=== PATIENT | male | born 1945 | race Caucasian/White ===

== ENCOUNTER 2016-05-23 08:07 | Day surgery (SDC) | payer MEDICARE, BC, OTHER ==
[~2016-05-23 08:07] MED LIST: RINGERS SOLUTION,LACTATED 1,000 ML IV PRN
[2016-05-23] MEDS ORDERED: RINGERS SOLUTION,LACTATED 1,000 ML IV ONE (09:15)
[2016-05-23] MEDS ORDERED: RINGERS SOLUTION,LACTATED 1,000 ML IV PRN (10:21)
[2016-05-23 11:15] VITALS: BP 125/72
--- NOTE | 2016-05-23 18:19 | OR ---
Operative Report - Dictated Report Narrative: OPERATIVE REPORT DATE OF OPERATION: 05/23/2016 PREOPERATIVE DIAGNOSIS: History of colon polyps POSTOPERATIVE DIAGNOSIS: Diverticulosis. 0.5 cm polyp in the cecum, 3 mm polyp at 100 cm, 4 mm polyps at 35 and 70 cm, 0.7 cm polyp at 20 cm (pathology pending) OPERATION: Colonoscopy with snare polypectomy at 20 cm and in the cecum. Hot biopsy forceps polypectomies at 35 cm, 70 cm, and 100 cm SURGEON: Josef Hammer MD ANESTHESIA: ADIEL Schultz CRNA INDICATIONS FOR PROCEDURE: The patient is a 70-year-old male referred by the [place]. He has had tubular adenomas removed in 2002, 2004, and 2008. His mother had colon cancer at age 70. The patient is currently asymptomatic FINDINGS: Sigmoid diverticulosis. 0.5 cm polyp in the cecum, 3 mm polyp at 100 cm, 4 mm polyps at 35 and 70 cm, 0.7 cm polyp at 20 cm (pathology pending) NARRATIVE OF PROCEDURE: The patient was identified in the holding area, and prior to the administration of anesthetic, a multidisciplinary timeout was observed. With the patient in the left lateral position and after the administration of intravenous sedation, the perineum was inspected. There was no evidence of pilonidal disease or skin breakdown. The external appearance of the anus was normal. Sphincter tone was good. The flexible fiberoptic colonoscope was inserted into the rectum which was insufflated with air. The rectal mucosa and submucosal vascular pattern appeared normal, the prep was seen to be complete. The scope was advanced through the sigmoid colon, which contained numerous non-impacted noninflamed diverticular openings. The scope was advanced up the descending colon, and around the splenic flexure where the triangular haustral architecture of the transverse colon was seen. The scope was advanced across the transverse colon, around the hepatic flexure to the cecum, where the confluence of tenia and the ileocecal valve were identified. The mucosa at this level appeared normal. On a proximal cecal fold a 0.5 cm polyp was encountered. This was biopsied and then removed with cautery snare. The polyp was retrieved through the suction and submitted to pathology. The base was additionally treated with cautery and appeared complete and hemostatic. The scope was then slowly withdrawn in a circular fashion so that all aspects of colonic mucosa were inspected. The colon was normal in course and caliber. The haustral architecture appeared well preserved throughout with no evidence of external compression. The mucosa and submucosal vascular pattern appeared normal, specifically there was no gross evidence to suggest colitis or inflammatory bowel disease and no AV malformations were seen. The diverticulosis was moderate in degree and confined primarily to the sigmoid colon. A 3 mm polyp was encountered at 100 cm this was simply destroyed in place with electrocautery. 4 mm polyps were encountered at 70 cm and 35 cm. These were removed with hot biopsy forceps. The polypectomy sites appeared complete and hemostatic. A 0.7 cm polyp was encountered at 20 cm. This was biopsied and then removed with cautery snare. The base was additionally treated with cautery and appeared complete and hemostatic. The polyp was retrieved and submitted to pathology. The scope was gradually withdrawn to the level of the rectum. As much insufflated air as possible was removed. The scope was withdrawn from the patient and the procedure terminated. The patient tolerated the anesthetic and procedure well without complication and was transferred back to the ambulatory surgery area awake and in stable condition. The patient remained stable throughout a period of postoperative observation. He denied abdominal discomfort, was able to tolerate by mouth intake, and was up without assistance. I shared the operative findings with the patient and he was given copies of the photographs which appear in the medical record. He was discharged home with instructions not to engage in hazardous activity today, but may resume normal activity tomorrow, and advance diet as tolerated. He is to continue those medications as listed in the history and physical exam. I made arrangements to contact him with the biopsy reports and will make additional recommendations for treatment and follow-up based upon those results. Reviewed and electronically signed
== END 2016-05-23 08:08 | disposition home or self-care (01) ==
LOC: AMB 08:07
PROVIDERS: ATTEND Surgery
PROC: 0DBE8ZX Excision of Large Intestine, Via Natural or Artificial Opening Endoscopic, Diagnostic (ICD-10-PCS; 2016-05-23)
PROC: 0DBE8ZX Excision of Large Intestine, Via Natural or Artificial Opening Endoscopic, Diagnostic (ICD-10-PCS; 2016-05-23)
PROC: 0DBH8ZX Excision of Cecum, Via Natural or Artificial Opening Endoscopic, Diagnostic (ICD-10-PCS; principal; 2016-05-23 10:00)
DX: Z12.11 Encounter for screening for malignant neoplasm of colon (principal); D12.0 Benign neoplasm of cecum; K63.5 Polyp of colon; I10 Essential (primary) hypertension; E78.5 Hyperlipidemia, unspecified; Z87.891 Personal history of nicotine dependence; Z68.32 Body mass index [BMI] 32.0-32.9, adult; Z80.0 Family history of malignant neoplasm of digestive organs

== ENCOUNTER 2016-07-21 10:27 | Emergency (ER) | payer MEDICARE, BC, OTHER ==
[2016-07-21 10:42] VITALS: BP 141/73
--- NOTE | 2016-07-21 10:48 | ERNOTE ---
Integumentary HPI - Narrative Date of Service: 07/21/16 - General Presenting Symptoms: insect bite Time Seen by Provider: 07/21/16 10:46 Source: patient, RN notes reviewed Exam Limitations: no limitations - Immun/Allergies/Home Medications Immunizations: IMMUNIZATION HX Immunizations Up to Date Yes History of Influenza Vaccine Yes Hx Pneumococcal Vaccination Yes Allergies/Adverse Reactions: Allergies Allergy/AdvReac Type Severity Reaction Status Date / Time Penicillins Allergy Hives Verified 07/21/16 10:43 Home Medications: HOME MEDICATIONS Allopurinol 300 mg PO DAILY 01/23/13 [Last Taken 05/22/16] Aspirin [Aspirin Enteric Coated] 81 mg PO DAILY 01/23/13 [Last Taken 05/22/16] Finasteride 5 mg PO DAILY 01/23/13 [Last Taken 05/22/16] Hydrochlorothiazide 12.5 mg PO DAILY 01/23/13 [Last Taken 05/22/16] Metoprolol Tartrate [Lopressor] 100 mg PO BID 01/23/13 [Last Taken 05/23/16 04: 45] Multivit-Minerals/FA/Lycopene [Men's Daily Formula Capsule] 1 each PO DAILY 06/02 [Last Taken 05/22/16] Terazosin HCl 10 mg PO HS 01/23/13 [Last Taken 05/22/16] metFORMIN HCL [Metformin HCl] 500 mg PO BID 01/23/13 [Last Taken 05/22/16] Atorvastatin Calcium 40 mg PO DAILY 04/26/15 [Last Taken 05/22/16] Ibuprofen [Motrin] 600 mg PO Q8H PRN 04/28/16 [Last Taken 05/22/16] Nystatin 15 gm TP BID 04/28/16 [Last Taken 05/22/16] Clindamycin HCl [Cleocin HCl] 300 mg PO QID #28 capsule 07/21/16 [Last Taken Unknown] glipiZIDE [Glipizide] 5 mg PO DAILY 07/21/16 [Last Taken Unknown] - History of Present Illness Narrative: Nick is a 70-year-old male who presents to the emergency Department by private vehicle for a possible insect bite to the left middle finger. He noticed a lesion on the finger very early this morning. It has continued to get larger and has become somewhat sore. He has also noticed increasing redness to the dorsum of his hand and some mild edema in his hand. He has a 37.7 temperature on arrival, but he denies any chills or malaise. He has not taken anything for pain. He reports having a tetanus vaccination recently at the [place]. Date (Duration): 07/21/16 Time (Timing): 03:00 Exposure: Reports: insect bite/spider - suspected - not actually seen Associated Symptoms: Reports: blisters, swelling/mass/lumps, edema. Denies: hives, petechiae, malaise, paresthesia, numbness Prior Treatment: Denies: recently seen, currently on antibiotics Review of Systems - Review of Systems Constitutional: Absent: chills, fatigue, malaise EYE: Present: no symptoms reported ENT: Present: no symptoms reported Respiratory: Absent: shortness of breath, cough, wheezing, stridor Cardiology: Absent: chest pain, palpitations Gastrointestinal/Abdominal: Absent: nausea, abdominal pain Genitourinary: Present: no symptoms reported Musculoskeletal: Absent: joint pain, joint swelling Skin: Present: lesions, change in color. Absent: rash Neurological: Absent: headache, dizziness/light-headedness, weakness, numbness, tingling Endocrine: Present: no symptoms reported Hematologic/Lymphatic: Absent: easy bruising, easy bleeding Psych: Present: no symptoms reported - Patient's Past Medical History Patient History - Medical: Arthritis, Diabetes Type 2, Other - BPH Patient History - Cardiac/Respiratory: Hypertension, Hyperlipidemia Patient History - Cancer: No Hx of Cancer Patient History - Surgical Procedures: Colonoscopy, Total Knee Replacement, T & A, Urology - Prostate biopsy Patient History - Other: None - Family History Father Family History - Medical: , Dementia Family History - Cardiac/Respiratory: No pertinent hx Family History - Cancer: No pertinent family hx Mother Family History - Medical: Anxiety Family History - Cardiac/Respiratory: No pertinent hx Family History - Cancer: Colon, Lung - Social History Living Situations: spouse Abuse History: No History of abuse Psych History: No pertinent hx Smoking Status: Former smoker Alcohol Use: occasionally Drug Use: none - Immunizations Immunizations Up to Date: Yes Hx Pneumococcal Vaccination: Yes History of Influenza Vaccine: Yes Physical Exam - Physical Exam General Appearance: Present: wd/wn, alert, no apparent distress Neck: Present: normal inspection, nontender, supple, full range of motion Respiratory: Present: no respiratory distress, normal breath sounds, no accessory muscle use, lungs clear Cardiovascular/Chest: Present: regular rate, rhythm, no murmur, normal peripheral pulses Extremity Exam: Present: normal range of motion, other - Erythema - extending from wound on proximal dorsal left middle finger to distal half of dorsal hand. Absent: joint redness, joint swelling Neurological Exam: Present: alert, oriented, normal mood/affect, no motor/ sensory deficits Skin Exam: Present: normal color, warm/dry, other - Hemorrhagic blister to left proximal dorsal middle finger with surrounding erythema, mildly tender to palpation ED Progress - Vital Signs Patient's Vital Signs:: I have reviewed the patient's vital signs. Vital Signs: Vital Signs 07/21/16 10:37 Temperature 37.7 C H Pulse Rate 80 Respiratory 16 Rate Blood Pressure 141/73 O2 Sat by Pulse 95 Oximetry - Progress/Reassessment Chief Complaint: Insect Bite Progress:: Unchanged Departure Clinical Impression: Brown recluse spider bite Qualifiers: Encounter type: initial encounter Injury intent: undetermined intent Qualified Code(s): T63.334A - Toxic effect of venom of brown recluse spider, undetermined , initial encounter - Departure Disposition: Home self-care Condition: Good Instructions: Spider Bite Additional Instructions: Cold compresses several times a day Tylenol for pain if needed Return for vomiting, high fever, or other worsening symptoms Prescriptions: Clindamycin HCl [Cleocin HCl] 300 mg PO QID #28 capsule
--- OUTSIDE RECORDS SUMMARY | 2016-07-21 11:07 | XMS REPORT | Continuity of Care Document ---
:1945 Author Organization [facility] ([facility]) Address [place] [address] Phone [phone] Care Team Providers Name Role Phone Unavailable Primary Care Provider Unavailable Source Comments This disclosure is being made pursuant to the Care Everywhere program, applicable federal and state laws, and may not contain all informaitonavailable regarding this patient.[facility] ([facility]) Active Allergies and Adverse Reactions Not on File Current Medications Not on file Active Problems Not on file Most Recent Encounters Date Type Specialty Providers Description 06/29/2016 Lab Requisition Pathology Lab Services, [facility] Dx: Neoplasm of uncertain behavior of skin Social History Tobacco Use Types Packs/Day Years Used Date Never Assessed Plan of Care Health Maintenance Due Date Last Done Comments Hepatitis B Vaccine (1 of 3 - Primary Series) 1945 Tdap Vaccine 09/08/1954 Lipid Disorder Screening 09/08/1961 Td Vaccine 09/08/1961 Colonoscopy 09/08/1993 Prostate Cancer Screening 09/08/1993 Zoster Vaccine 2003 Pneumococcal Vaccine (1 of 2 - PCV13) 09/08/2008 Influenza Vaccine: Seasonal (Season Ended) 2016 Results from Last 3 Months DERMATOPATHOLOGY EXAM (06/29/2016 8:07 AM) Component Value Range Case Report Surgical Pathology Case: [id number] Authorizing Provider:Lab Services, [facility] Collected: 06/29/2016 08:07 AM Pathologist: Jasbir Cardona MD Received: 06/30/2016 11:33 AM Specimens: A) - Skin, other, specify, nasal root B) - Skin, other, specify, left nasal ala Diagnosis A.Skin, nasal root, shaved: Squamous cell carcinoma, well differentiated, superficially invasive. B. Skin, left nasal ala, shave: Squamous cell carcinoma, well differentiated, superficially invasive. I have personally reviewed this case and edited the report as necessary. Clinical Information A. Nasal root. B. Left nasal ala. Clinical history and findings: A. 0.3 cm erythematous papule. B. 0.2 cm erythematous papule. Differential diagnosis: A,B. BCC versus SCC. Gross Description A.Received in formalin, in a container labeled Nick Ewing, date of , and "nasal root", is a 0.7 x 0.6 x 0.3 cm mehta shave biopsy.The specimen is inked, bisected and submitted entirelyin A1. LRD/rls B.Received in formalin, in a container labeled Nick Ewing, date of , and "left nasal ala", is a 0.7 x 0.5 x 0.2 cm mehta shave biopsy.The specimen is inked, bisected and submitted entirely in B1. LRD/rls Microscopic Description A.Sections of skin show a hyperparakeratotic atypical squamous proliferation arising from the epidermis with extension into the dermis as discontiguous atypical squamous islands.The deep coty n is closely approached in the plane of sectioning. B.Sections of skin show a hyperparakeratotic atypical squamous proliferation arising from the epidermis with extension into the dermis as discontiguous atypical squamous islands.The lateral ma rgin is closely approached in the plane of sectioning. Performed by:Everette Alvarez MD, R4/rls Specimen Skin - Skin, other, specify
[2016-07-21] MEDS ORDERED: CLINDAMYCIN HCL 150 MG CAPSULE PO ONE (11:15)
[2016-07-21] MEDS ORDERED: CLINDAMYCIN HCL 150 MG CAPSULE ONE (11:20)
== END 2016-07-21 11:26 | disposition home or self-care (01) ==
LOC: ER 10:27
DX: T63.334A Toxic effect of venom of brown recluse spider, undetermined, initial encounter (principal); E11.9 Type 2 diabetes mellitus without complications; I10 Essential (primary) hypertension

== ENCOUNTER 2016-07-21 14:16 | Emergency (ER) | payer MEDICARE, BC, OTHER ==
[2016-07-21] MEDS ORDERED: ACETAMINOPHEN 500 MG TABLET PO ONE (14:42)
[2016-07-21] MEDS ORDERED: NORMAL SALINE 1,000 ML IV SCH (14:45)
--- OUTSIDE RECORDS SUMMARY | 2016-07-21 14:58 | XMS REPORT | Continuity of Care Document ---
:1945 Author Organization [facility] ([facility]) [place] [address] Phone [phone] Care Team Providers Name Role Phone Unavailable Primary Care Provider Unavailable Source Comments This disclosure is being made pursuant to the Care Everywhere program, applicable federal and state laws, and may not contain all informaitonavailable regarding this patient.[facility] ([facility]) Active Allergies and Adverse Reactions Not on File Current Medications Not on file Active Problems Not on file Most Recent Encounters Date Type Specialty Providers Description 06/29/2016 Lab Requisition Pathology Lab Services, [facility] Dx: Neoplasm of uncertain behavior of skin [...] Value Range Case Report Surgical Pathology Case: [id number] Authorizing Provider:Lab Services, [facility] Collected: 06/29/2016 08:07 AM Pathologist: Jasbir Cardona [...]
[2016-07-21 15:03] LABS: Hematocrit 43.6 % (42.0-52.0); Hemoglobin 15.4 gm/dL (13.5-18.0); Mean Cell Volume 89.2 fl (78-100); Mean Corpuscular Hemoglobin 31.5 pg (27-31); Mean Corpuscular Hgb Conc 35.3 g/dl (32-36); Mean Platelet Volume 9.8 fl (6.0-9.5); Neutrophil # 12.1 K/mm3 (1.3-6.0); Neutrophil % 86.7 % (42-75.0); Platelet Count 153 K/mm3 (150-450); Red Blood Count 4.89 M/mm3 (4.7-6.0); Red Cell Distribution Width 13.2 % (11.5-14.0)
[2016-07-21 15:24] LABS: Anion Gap 13.8 mmol/L (6.8-13.8); BUN/Creatinine Ratio 21.6 (9.0-21.6); Bilirubin, Total 0.8 mg/dL (0.0-1.1); CRP 1.3 mg/dL (0.0-0.9); Ca. Corrected For Albumin 9.3 mg/dL (8.4-10.2); Calcium * 9.6 mg/dL (7.9-10.9); Carbon Dioxide 25.9 mmol/L (24-32.6); Potassium 3.7 mmol/L (3.4-4.6); Total Protein 7.3 gm/dL (6.2-8.2)
--- NOTE | 2016-07-21 17:47 | ERNOTE ---
Integumentary HPI - Narrative Date of Service: 07/21/16 - General Presenting Symptoms: insect bite Time Seen by Provider: 07/21/16 14:44 Source: patient, family, RN notes reviewed Exam Limitations: no limitations - Immun/Allergies/Home Medications Immunizations: IMMUNIZATION HX Immunizations Up to Date Yes History of Influenza Vaccine Yes Hx Pneumococcal Vaccination Yes Allergies/Adverse Reactions: Allergies Allergy/AdvReac Type Severity Reaction Status Date / Time Penicillins Allergy Hives Verified 07/21/16 14:32 Home Medications: HOME MEDICATIONS Allopurinol 300 mg PO DAILY 01/23/13 [Last Taken 05/22/16] Aspirin [Aspirin Enteric Coated] 81 mg PO DAILY 01/23/13 [Last Taken 05/22/16] Finasteride 5 mg PO DAILY 01/23/13 [Last Taken 05/22/16] Hydrochlorothiazide 12.5 mg PO DAILY 01/23/13 [Last Taken 05/22/16] Metoprolol Tartrate [Lopressor] 100 mg PO BID 01/23/13 [Last Taken 05/23/16 04: 45] Multivit-Minerals/FA/Lycopene [Men's Daily Formula Capsule] 1 each PO DAILY 06/02 [Last Taken 05/22/16] Terazosin HCl 10 mg PO HS 01/23/13 [Last Taken 05/22/16] metFORMIN HCL [Metformin HCl] 500 mg PO BID 01/23/13 [Last Taken 05/22/16] Atorvastatin Calcium 40 mg PO DAILY 04/26/15 [Last Taken 05/22/16] Ibuprofen [Motrin] 600 mg PO Q8H PRN 04/28/16 [Last Taken 05/22/16] Nystatin 15 gm TP BID 04/28/16 [Last Taken 05/22/16] Clindamycin HCl [Cleocin HCl] 300 mg PO QID #28 capsule 07/21/16 [Last Taken Unknown] glipiZIDE [Glipizide] 5 mg PO DAILY 07/21/16 [Last Taken Unknown] - History of Present Illness Narrative: Nick is a 70-year-old male who is brought back to the emergency department by his for worsening symptoms after he was seen earlier today with a spider bite to his left middle finger. He had a temperature of 37.7 when he was seen earlier, but denied any chills or malaise at that point. He was given a dose of clindamycin here. He then went home and took a nap. When he woke up later in the afternoon, he felt much worse. He was having chills and increased pain in his hand. He also vomited. He had a cold compress on his wound while at home. He reports that the room seems to look better and that the redness on his hand has not increased. Prior Treatment: Reports: recently seen, currently on antibiotics Review of Systems - Review of Systems Constitutional: Present: fever, chills, malaise EYE: Present: no symptoms reported ENT: Present: no symptoms reported Respiratory: Absent: shortness of breath, cough Cardiology: Absent: chest pain, syncope Gastrointestinal/Abdominal: Present: nausea, vomiting, eating less. Absent: abdominal pain, drinking less Genitourinary: Absent: dysuria, decreased urinary output Musculoskeletal: Absent: joint pain, joint swelling Skin: Present: lesions. Absent: lumps Neurological: Absent: headache, dizziness/light-headedness, weakness, numbness, tingling Endocrine: Present: no symptoms reported Hematologic/Lymphatic: Present: no symptoms reported Psych: Present: no symptoms reported - Patient's Past Medical History Patient History - Medical: Arthritis, Diabetes Type 2, Other Patient History - Cardiac/Respiratory: Hypertension, Hyperlipidemia Patient History - Cancer: No Hx of Cancer Patient History - Surgical Procedures: Colonoscopy, Total Knee Replacement, T & A, Urology Patient History - Other: None - Family History Father Family History - Medical: , Dementia Family History - Cardiac/Respiratory: No pertinent hx Family History - Cancer: No pertinent family hx Mother Family History - Medical: Anxiety Family History - Cardiac/Respiratory: No pertinent hx Family History - Cancer: Colon, Lung - Social History Living Situations: spouse Abuse History: No History of abuse Psych History: No pertinent hx Alcohol Use: occasionally Drug Use: none - Immunizations Immunizations Up to Date: Yes Hx Pneumococcal Vaccination: Yes History of Influenza Vaccine: Yes Physical Exam - Physical Exam General Appearance: Present: wd/wn, alert, mild distress, other - appears to not feel well Neck: Present: normal inspection, nontender, supple Respiratory: Present: no respiratory distress, normal breath sounds, no accessory muscle use, lungs clear Cardiovascular/Chest: Present: regular rate, rhythm, no murmur, normal peripheral pulses Gastrointestinal/Abdominal: Present: nontender, nondistended, soft Extremity Exam: Present: normal range of motion, extremity edema - Left middle finger and dorsum of hand, mild tenderness with palpation Neurological Exam: Present: alert, oriented, normal mood/affect, no motor/ sensory deficits Skin Exam: Present: warm/dry, other - face flushed, hemorrhagic blister to dorsum of left proximal middle finger with surrounding redness extending onto dorsum of hand - does not appear changed from earlier visit ED Progress - Results and Orders Patient's Lab Results:: I have reviewed the patient's lab results. - Vital Signs Patient's Vital Signs:: I have reviewed the patient's vital signs. Vital Signs: Vital Signs 07/21/16 07/21/16 07/21/16 10:37 14:29 15:00 Temperature 37.7 C H 38.3 C H 37.2 C Pulse Rate 99 89 Respiratory 16 15 Rate Blood Pressure 141/73 152/70 146/69 O2 Sat by Pulse 96 97 Oximetry 07/21/16 07/21/16 07/21/16 15:30 15:50 16:15 Temperature 36.7 C 37.1 C 36.7 C Pulse Rate 79 89 69 Respiratory 16 16 16 Rate Blood Pressure 111/73 142/72 124/73 O2 Sat by Pulse 98 97 98 Oximetry 07/21/16 16:45 Temperature 36.9 C Pulse Rate 92 Respiratory 14 Rate Blood Pressure 148/74 O2 Sat by Pulse 98 Oximetry - Progress/Reassessment Chief Complaint: Insect Bite Progress:: Improved Plan - Plan Plan: Patient verbalizes feeling better after Tylenol. Tolerating liquids without further n/v. IV Rocephin given. G6PD ordered in the event patient would need to be given Dapsone, this is pending. To continue clindamycin for now. Departure Clinical Impression: Cellulitis of hand, left Brown recluse spider bite Qualifiers: Encounter type: sequela Injury intent: undetermined intent Qualified Code(s): T63.334S - Toxic effect of venom of brown recluse spider, undetermined, sequela - Departure Disposition: Home Follow Up Needed Condition: Stable Instructions: Cellulitis, Adult, Gnbp-og-[id number] Additional Instructions: Tylenol as directed on label for fever Continue your antibiotic - take with food Cold compresses as needed Return for worsening symptoms Referrals: Leoncio Thornton, [Primary Care Provider] -
[2016-07-21 17:48] VITALS: BP 142/73
== END 2016-07-21 17:43 | disposition home or self-care (01) ==
LOC: ER 14:16
DX: L03.114 Cellulitis of left upper limb (principal); T63.3 Toxic effect of venom of spider; E11.9 Type 2 diabetes mellitus without complications; I10 Essential (primary) hypertension

== ENCOUNTER 2016-07-26 15:17 | Emergency (ER) | payer MEDICARE, BC, OTHER ==
--- OUTSIDE RECORDS SUMMARY | 2016-07-26 15:37 | XMS REPORT | Continuity of Care Document ---
:1945 Author Organization [facility] ([facility]) [place] [address] Phone [phone] Care Team Providers Name Role Phone Unavailable Primary Care Provider Unavailable Source Comments This disclosure is being made pursuant to the Care Everywhere program, applicable federal and state laws, and may not contain all informaitonavailable regarding this patient.[facility] ([facility]) Active Allergies and Adverse Reactions Not on File Current Medications Not on file Active Problems Not on file Most Recent Encounters Date Type Specialty Providers Description 06/29/2016 Lab Requisition Pathology Lab Services, [facility] Dx: Neoplasm of uncertain behavior of [...] Value Range Case Report Surgical Pathology Case: [id number] Authorizing Provider:Lab Services, [facility] Collected: 06/29/2016 08:07 AM Pathologist: Jasbir [...]
--- NOTE | 2016-07-26 15:47 | ERNOTE ---
Integumentary HPI - Narrative Date of Service: 07/26/16 - General Presenting Symptoms: insect bite Time Seen by Provider: 07/26/16 15:25 Source: patient Exam Limitations: no limitations - Immun/Allergies/Home Medications Immunizations: IMMUNIZATION HX Immunizations Up to Date Yes History of Influenza Vaccine Yes Hx Pneumococcal Vaccination Yes Allergies/Adverse Reactions: Allergies Allergy/AdvReac Type Severity Reaction Status Date / Time Penicillins Allergy Hives Verified 07/26/16 15:24 Home Medications: HOME MEDICATIONS Allopurinol 300 mg PO DAILY 01/23/13 [Last Taken 05/22/16] Aspirin [Aspirin Enteric Coated] 81 mg PO DAILY 01/23/13 [Last Taken 05/22/16] Finasteride 5 mg PO DAILY 01/23/13 [Last Taken 05/22/16] Hydrochlorothiazide 12.5 mg PO DAILY 01/23/13 [Last Taken 05/22/16] Metoprolol Tartrate [Lopressor] 100 mg PO BID 01/23/13 [Last Taken 05/23/16 04: 45] Multivit-Minerals/FA/Lycopene [Men's Daily Formula Capsule] 1 each PO DAILY 06/02 [Last Taken 05/22/16] Terazosin HCl 10 mg PO HS 01/23/13 [Last Taken 05/22/16] metFORMIN HCL [Metformin HCl] 500 mg PO BID 01/23/13 [Last Taken 05/22/16] Atorvastatin Calcium 40 mg PO DAILY 04/26/15 [Last Taken 05/22/16] Ibuprofen [Motrin] 600 mg PO Q8H PRN 04/28/16 [Last Taken 05/22/16] Nystatin 15 gm TP BID 04/28/16 [Last Taken 05/22/16] Clindamycin HCl [Cleocin HCl] 300 mg PO QID #28 capsule 07/21/16 [Last Taken Unknown] glipiZIDE [Glipizide] 5 mg PO DAILY 07/21/16 [Last Taken Unknown] - History of Present Illness Narrative: Pt. reports to this ER for follow up of brown recluse bite that was treated here five days ago. Pt. was seen five days ago and as treated with antibiotics with improvement of symptoms since. Pt. states taht wound has scant serosanguinous drainage from wound but the redness is receding and the swelling has resolved. Pt. denies any fevers, NVD, SOB CP, dizziness, or aggravating factors. Pt. denies any pain at this time. Review of Systems - Review of Systems Constitutional: Present: no symptoms reported. Absent: recent illness, fever, chills, weakness, fatigue, malaise EYE: Present: no symptoms reported ENT: Present: no symptoms reported Respiratory: Present: no symptoms reported. Absent: shortness of breath, cough , wheezing Cardiology: Present: no symptoms reported. Absent: chest pain, palpitations, edema Gastrointestinal/Abdominal: Present: no symptoms reported. Absent: nausea, vomiting, diarrhea Genitourinary: Present: no symptoms reported Musculoskeletal: Present: no symptoms reported. Absent: back pain, joint pain Skin: Present: lesions - L third finger anterior necrotic area around spider bite Neurological: Present: no symptoms reported. Absent: headache, dizziness/light- headedness, numbness, tingling Endocrine: Present: no symptoms reported All Other Systems: All systems neg except as marked - Patient's Past Medical History Patient History - Medical: Arthritis, Diabetes Type 2 Patient History - Cardiac/Respiratory: Hypertension, Hyperlipidemia Patient History - Cancer: No Hx of Cancer Patient History - Surgical Procedures: Colonoscopy, Total Knee Replacement, T & A, Urology Patient History - Other: None - Family History Father Family History - Medical: , Dementia Family History - Cardiac/Respiratory: No pertinent hx Family History - Cancer: No pertinent family hx Mother Family History - Medical: Anxiety Family History - Cardiac/Respiratory: No pertinent hx Family History - Cancer: Colon, Lung - Social History Living Situations: spouse Abuse History: No History of abuse Psych History: No pertinent hx Smoking Status: Former smoker Alcohol Use: occasionally Drug Use: none - Immunizations Immunizations Up to Date: Yes Hx Pneumococcal Vaccination: Yes History of Influenza Vaccine: Yes Physical Exam - Physical Exam General Appearance: Present: wd/wn, alert, no apparent distress Eye Exam: Normal inspection: bilateral, PERRL: bilateral, EOMI: bilateral Ears, Nose, Throat: Present: normal ENT inspection, normal pharynx Neck: Present: normal inspection, nontender. Absent: lymphadenopathy (R), lymphadenopathy (L) Respiratory: Present: no respiratory distress, normal breath sounds, no accessory muscle use, chest nontender, lungs clear Cardiovascular/Chest: Present: regular rate, rhythm, no murmur, normal peripheral pulses Back Exam: Present: normal inspection Neurological Exam: Present: alert, oriented, normal mood/affect, no motor/ sensory deficits ED Progress - Date and Time Seen: Date and Time: 07/26/16 15:46 Pt. with improving wound and is still on abx and has no s/sx of complications so will send pt. home and find follow up for him. - Results and Orders Patient's Lab Results:: I have reviewed the patient's lab results. - Vital Signs Patient's Vital Signs:: I have reviewed the patient's vital signs. Vital Signs: Vital Signs 07/26/16 15:20 Temperature 36.5 C Pulse Rate 68 Respiratory 14 Rate Blood Pressure 141/72 O2 Sat by Pulse 94 Oximetry - Progress/Reassessment Chief Complaint: Insect Bite Departure Clinical Impression: Brown recluse spider bite Qualifiers: Encounter type: initial encounter Injury intent: accidental or unintentional Qualified Code(s): T63.331A - Toxic effect of venom of brown recluse spider, accidental (unintentional), initial encounter - Departure Disposition: Home self-care Condition: Good Instructions: Brown Recluse Spider Bite, [id number] Additional Instructions: Follow up with Dr. Thornton Monday08/02/16 at 3:00 PM. Return to the Er if you develop a fever or redness of the hand or arm or the black area gets larger.
[2016-07-26 15:51] VITALS: BP 134/74
[2016-07-26 15:53] LABS: Hemoglobin 14.9 gm/dL (13.5-18.0); Mean Cell Volume 89.7 fl (78-100); Mean Corpuscular Hemoglobin 31.8 pg (27-31); Mean Corpuscular Hgb Conc 35.5 g/dl (32-36); Mean Platelet Volume 9.8 fl (6.0-9.5); Neutrophil # 3.6 K/mm3 (1.3-6.0); Neutrophil % 56.2 % (42-75.0); Platelet Count 182 K/mm3 (150-450); Red Blood Count 4.68 M/mm3 (4.7-6.0); Red Cell Distribution Width 13.2 % (11.5-14.0); White Blood Count 6.4 K/mm3 (4.0-10.5)
[2016-07-26 16:05] LABS: Albumin * 3.8 gm/dl (3.4-5.0); Anion Gap 11.2 mmol/L (6.8-13.8); BUN/Creatinine Ratio 22.8 (9.0-21.6); Bilirubin, Total 0.6 mg/dL (0.0-1.1); Ca. Corrected For Albumin 9.3 mg/dL (8.4-10.2); Calcium * 9.5 mg/dL (7.9-10.9); Carbon Dioxide 27.6 mmol/L (24-32.6); Potassium 3.8 mmol/L (3.4-4.6); Total Protein 7.3 gm/dL (6.2-8.2)
== END 2016-07-26 16:31 | disposition home or self-care (01) ==
LOC: ER 15:17
DX: T63.331A Toxic effect of venom of brown recluse spider, accidental (unintentional), initial encounter (principal); Z87.891 Personal history of nicotine dependence; I10 Essential (primary) hypertension; E11.9 Type 2 diabetes mellitus without complications

== ENCOUNTER 2019-01-29 19:36 | Observation (INO) ==
--- NOTE | 2019-01-29 19:43 | ERNOTE ---
Dyspnea - Date Date of Service: 01/29/19 - General Presenting Symptoms: shortness of breath Time Seen by Provider: 01/29/19 19:38 Source: patient Exam Limitations: no limitations - Immun/Allergies/Home Medications Immunizations: IMMUNIZATION HX Immunizations Up to Date Yes History of Influenza Vaccine Yes Hx Pneumococcal Vaccination Yes Allergies/Adverse Reactions: Allergies Penicillins Allergy (Verified 10/08/18 08:14) Hives Home Medications: HOME MEDICATIONS Aspirin [Aspirin Enteric Coated] 81 mg PO DAILY 01/23/13 [Last Taken 05/22/16] Multivit-Minerals/FA/Lycopene [Men's Daily Formula Capsule] 1 ea PO DAILY 01/23/13 [Last Taken 05/22/16] Ibuprofen [Motrin] 600 mg PO Q8H PRN 04/28/16 [Last Taken 05/22/16] albuterol sulfate 90 mcg/actuation aerosol inhaler 1 puff IH Q6H PRN #6.7 g 11/13/18 [Last Taken Unknown] metformin 500 mg tablet 500 mg PO BID #180 tab 11/13/18 [Last Taken Unknown] allopurinol 300 mg tablet 300 mg PO DAILY #90 tab 01/15/19 [Last Taken Unknown] atorvastatin 40 mg tablet 40 mg PO DAILY #90 tab 01/15/19 [Last Taken Unknown] finasteride 5 mg tablet 5 mg PO DAILY #90 tab 01/15/19 [Last Taken Unknown] glipizide 10 mg tablet 10 mg PO BID #180 tab 01/15/19 [Last Taken Unknown] hydrochlorothiazide 12.5 mg tablet 12.5 mg PO DAILY #90 tab 01/15/19 [Last Taken Unknown] lisinopril 5 mg tablet 5 mg PO DAILY #90 tab 01/15/19 [Last Taken Unknown] terazosin 10 mg capsule 10 mg PO HS #90 cap 01/15/19 [Last Taken Unknown] - Pain Score Pain Score #1 Pain Score: 0 - History of Present Illness Narrative: The patient is a 73 year old male who presents for carbon monoxide exposure which occurred 1 hour ago. There are associated symptoms of shakiness, dyspnea and lightheadedness. The patient denies pain. There are no alleviating factors. There are aggravating factors of activity. Previous treatments have included: none. The past medical history includes: HTN, HLD, BPH and colon adenoma. The social history is positive for former smoker. The patient has had no ill contacts. Patient states he was frying fish using a propane fryer in an enclosed building and began having shortness of breath and lightheadedness. Patient states that several other people in the same building was having similar symptoms. Patient states they identified after being enclosed in building for approximately 1.5 hours with frying going and then went outside and opened doors to building, another hour passed prior to arrival. Review of Systems - Review of Systems Constitutional: Present: weakness, fatigue. Absent: recent illness, fever EYE: Absent: vision changes ENT: Present: no symptoms reported. Absent: ear pain, nasal drainage, sore throat Respiratory: Present: shortness of breath, cough Cardiology: Absent: chest pain Gastrointestinal/Abdominal: Present: no symptoms reported. Absent: nausea, vomiting, diarrhea Genitourinary: Present: no symptoms reported Musculoskeletal: Present: no symptoms reported Skin: Present: no symptoms reported Neurological: Present: dizziness/light-headedness, other - shakiness All Other Systems: All systems neg except as marked Medical History (Last Reviewed 01/29/19 @ 20:08 by ABDOULAYE Squires) BPH (benign prostatic hyperplasia) (Chronic) Onset Date: Unknown Degenerative joint disease of knee (Chronic) Onset Date: 01/10/13 Hypertension (Chronic) Onset Date: Unknown Hyperlipidemia (Chronic) Onset Date: Unknown Diverticulosis Onset Date: 05/23/16 Medial meniscus tear Onset Date: 01/10/13 Rotator cuff tendinitis Onset Date: 06/02/17 Hyperplastic colon polyp Onset Date: 05/23/16 Serrated adenoma of colon Onset Date: 05/23/16 Tubular adenoma Onset Date: ~2002 Surgical History: Surgical History (Last Reviewed 01/29/19 @ 20:08 by ABDOULAYE Squires) History of arthroplasty of left knee Onset Date: 01/25/13 Dr. Hany Reyes, [facility]. History of basal cell carcinoma (BCC) excision Onset Date: ~01/2010 Dr. Fox. Back. History of colonoscopy Onset Date: ~2002 Tubular adenoma x 3 (ascending). History of colonoscopy Onset Date: ~01/2005 Tubular adenoma x 10 (7 in ascending, 3 in transverse). History of colonoscopy Onset Date: ~03/2008 Benign polyp. History of colonoscopy Onset Date: 05/23/16 Dr. Mary Hammer, [facility]. Serrated adenoma, tubular adenoma, hyperplastic polyp. Diverticulosis. Recheck 3 years. History of flexible sigmoidoscopy Onset Date: ~04/2002 History of prostate biopsy Onset Date: ~01/2003 Acute/chronic inflammation. History of tonsillectomy Onset Date: ~1961 History of total left knee replacement Onset Date: 01/14/15 Family History: Family History (Last Reviewed 01/29/19 @ 20:08 by ABDOULAYE Squires) Mother Colon cancer Anxiety Father , age 98 Dementia Social History: (Last Reviewed 01/29/19 @ 20:08 by ABDOULAYE Squires) Social History: skilled nursing: No Marital status: lives independently: Yes household members: spouse Service: Yes Tobacco: Smoking Status: Former smoker Alcohol: alcohol intake: current alcohol intake frequency: holiday/special occasion Dietary Habits: caffeine: No Physical Exam - Physical Exam General Appearance: Present: wd/wn, alert, moderate distress Head Exam: Present: normal inspection, no evidence of injury Eye Exam: Normal inspection: bilateral, PERRL: bilateral, EOMI: bilateral Ears, Nose, Throat: Present: normal ENT inspection, normal pharynx Neck: Present: normal inspection Respiratory: Present: no accessory muscle use, chest nontender, lungs clear, respiratory distress - mild to moderate Cardiovascular/Chest: Present: regular rate, rhythm, no murmur Gastrointestinal/Abdominal: Present: normal bowel sounds, nontender, nondistended, soft, no organomegaly Neurological Exam: Present: alert, oriented, no motor/sensory deficits, microstrategy reports developer II- XII nml as tested, normal cerebellar test, other - anxious, shakiness to extremities. Absent: motor weakness Skin Exam: Present: normal color, warm/dry Progress - Date and Time Seen: Date and Time: 01/29/19 20:54 Patient symptoms resolved, remains on NRB. Discussed results of testing with patient. Discussed patient exposure, results and currently being asymptomatic with , will admit for observation due to carbon monoxide poisoning. Instructed to obtain carboxyhemoglobin recheck in am. - Results and Orders Patient's Lab Results:: I have reviewed the patient's lab results. - Vital Signs Patient's Vital Signs:: I have reviewed the patient's vital signs. - EKG EKG #1 EKG: NSR - rate 90 EKG read: Reviewed by me Departure Clinical Impression: Carbon monoxide poisoning Qualifiers: Encounter type: initial encounter Injury intent: accidental or unintentional Qualified Code(s): T58.91XA - Toxic effect of carbon monoxide from unspecified source, accidental (unintentional), initial encounter - Departure Disposition: Still a patient Condition: Stable Referrals: Marni Shepard DO [Primary Care Provider] -
[2019-01-29 20:03] LABS: Methemoglobin % 0.3 % (0.41-1.15)
[2019-01-29 20:04] LABS: Carboxyhemoglobin % 30.1 % (0.5-1.5)
[2019-01-29 20:05] LABS: Hematocrit 43.6 % (42.0-52.0); Hemoglobin 15.4 gm/dL (13.5-18.0); Mean Cell Volume 93.4 fl (78-100); Mean Corpuscular Hgb Conc 35.3 g/dl (32-36); Mean Platelet Volume 9.5 fl (8-11.3); Neutrophil # 7.3 K/mm3 (1.3-6.0); Neutrophil % 72.8 % (42-75.0); Platelet Count 170 K/mm3 (150-450); Red Blood Count 4.67 M/mm3 (4.7-6.0); Red Cell Distribution Width 13.4 % (11.5-14.0)
[2019-01-29 20:21] LABS: INR 1.01 INR (0.92-1.08); Partial Thrombolplastin Time 23.7 Seconds (24-32)
[2019-01-29 20:24] LABS: ALT 33 U/L (19-67); AST 16 U/L (0-48); Alkaline Phosphatase * 86 U/L (50-170); Anion Gap 15.6 mmol/L (6.8-13.8); BUN/Creatinine Ratio 18.3 (9.0-21.6); Bilirubin, Total 0.4 mg/dL (0.0-1.1); Blood Urea Nitrogen 24 mg/dL (6-23); Calcium * 9.3 mg/dL (7.9-10.9); Carbon Dioxide 24.3 mmol/L (24-32.6); Chloride 101 mmol/L (97-106); Glucose * 206 mg/dL (70-110); Potassium 3.9 mmol/L (3.4-4.6); Sodium 137 mmol/L (132-142); Total Protein 7.3 gm/dL (6.2-8.2)
[2019-01-29 20:26] LABS: Troponin I Less than 0.017 ng/mL (0.00-0.10)
[2019-01-29] MEDS ORDERED: ACETAMINOPHEN 500 MG TABLET PO PRN (22:44)
[2019-01-29] MEDS ORDERED: TERAZOSIN HCL 5 MG CAPSULE PO SCH (23:00)
[2019-01-30 06:40] LABS: Methemoglobin % 0.4 % (0.41-1.15)
[2019-01-30 06:42] LABS: Carboxyhemoglobin % 2.3 % (0.5-1.5)
--- NOTE | 2019-01-30 07:59 | HPDIS ---
Chief Complaint - Chief Complaint Date of Service: 01/30/19 Time of Service: 07:51 Chief Complaint: carbon monoxode poisoning History of Present Illness: Patient and his friends were frying fish with the propane tank in an enclosed space last night. After several hours, several of them noticed they were not feeling well. Mr. Hogan realized he was a bit lightheaded and short of breath and shaking. He was brought to the ED, with significantly increased levels of carboxyhemoglobin of 30.1. He was started on oxygen via mask for carbon monoxide poisoning. He felt better after several hours. The oxygen was administered via mask for approximately 11 hours. At the time of my exam the following morning, he reports feeling great and back to his normal self. He no longer has any symptoms that he was experiencing last night. This morning's carboxyhemoglobin level decreased to 2.3. No other lab abnormalities, and vitals are within normal limits. Medical History (Last Reviewed 01/29/19 @ 22:04 by Misbah Ayala RN) BPH (benign prostatic hyperplasia) (Chronic) Onset Date: Unknown Degenerative joint disease of knee (Chronic) Onset Date: 01/10/13 Hypertension (Chronic) Onset Date: Unknown Hyperlipidemia (Chronic) Onset Date: Unknown Diverticulosis Onset Date: 05/23/16 Medial meniscus tear Onset Date: 01/10/13 Rotator cuff tendinitis Onset Date: 06/02/17 Hyperplastic colon polyp Onset Date: 05/23/16 Serrated adenoma of colon Onset Date: 05/23/16 Tubular adenoma Onset Date: ~2002 Surgical History: Surgical History (Last Reviewed 01/29/19 @ 22:04 by Misbah Ayala RN) History of arthroplasty of left knee Onset Date: 01/25/13 Dr. Hany Reyes, [facility]. History of basal cell carcinoma (BCC) excision Onset Date: ~01/2010 Dr. Fox. Back. History of colonoscopy Onset Date: ~2002 Tubular adenoma x 3 (ascending). History of colonoscopy Onset Date: ~01/2005 Tubular adenoma x 10 (7 in ascending, 3 in transverse). History of colonoscopy Onset Date: ~03/2008 Benign polyp. History of colonoscopy Onset Date: 05/23/16 Dr. Mary Hammer, [facility]. Serrated adenoma, tubular adenoma, hyperplastic polyp. Diverticulosis. Recheck 3 years. History of flexible sigmoidoscopy Onset Date: ~04/2002 History of prostate biopsy Onset Date: ~01/2003 Acute/chronic inflammation. History of tonsillectomy Onset Date: ~1961 History of total left knee replacement Onset Date: 01/14/15 Family History: Family History (Last Reviewed 01/29/19 @ 22:05 by Misbah Ayala RN) Mother Colon cancer Anxiety Father , age 98 Dementia Social History: (Last Reviewed 01/29/19 @ 22:05 by Misbah Ayala RN) Social History: custodial: No Marital status: lives independently: Yes household members: spouse Service: Yes Tobacco: Smoking Status: Former smoker Alcohol: alcohol intake: current alcohol intake frequency: holiday/special occasion Dietary Habits: caffeine: No Review Of Systems (GEN) - Review of Systems Generalized/Overall Review: Absent: Fever Respiratory: Present: Shortness of Breath Cardiac: Absent: Chest Pain Abdominal: Present: Nausea Genitourinary: Present: No Symptoms Reported Musculoskeletal: Present: No Symptoms Reported Neurological: Present: Tremors Skin: Present: No Symptoms Reported Immunizations: IMMUNIZATION HX Immunizations Up to Date Yes History of Influenza Vaccine Yes Hx Pneumococcal Vaccination Yes Allergies/Adverse Reactions: Allergies Allergy/AdvReac Type Severity Reaction Status Date / Time Penicillins Allergy Hives Verified 01/29/19 22:05 Home Medications: HOME MEDICATIONS Aspirin [Aspirin Enteric Coated] 81 mg PO DAILY 01/23/13 [Last Taken 05/22/16] Multivit-Minerals/FA/Lycopene [Men's Daily Formula Capsule] 1 ea PO DAILY 01/23/13 [Last Taken 05/22/16] Ibuprofen [Motrin] 600 mg PO Q8H PRN 04/28/16 [Last Taken 05/22/16] albuterol sulfate 90 mcg/actuation aerosol inhaler 1 puff IH Q6H PRN #6.7 g 11/13/18 [Last Taken Unknown] metformin 500 mg tablet 500 mg PO BID #180 tab 11/13/18 [Last Taken 01/29/19 08:00] allopurinol 300 mg tablet 300 mg PO DAILY #90 tab 01/15/19 [Last Taken 01/29/19 08:00] atorvastatin 40 mg tablet 40 mg PO DAILY #90 tab 01/15/19 [Last Taken 01/28/19 0800] finasteride 5 mg tablet 5 mg PO DAILY #90 tab 01/15/19 [Last Taken 01/29/19 08:00] glipizide 10 mg tablet 10 mg PO BID #180 tab 01/15/19 [Last Taken 01/29/19 08:00] hydrochlorothiazide 12.5 mg tablet 12.5 mg PO DAILY #90 tab 01/15/19 [Last Taken 01/29/19 08:00] lisinopril 5 mg tablet 5 mg PO DAILY #90 tab 01/15/19 [Last Taken 01/29/19 08:00] terazosin 10 mg capsule 10 mg PO HS #90 cap 01/15/19 [Last Taken 01/28/19 21:00] Exam - Exam Vital Signs: Vital Signs - Last Taken Temp 36.3 C 01/30/19 06:28 Pulse 64 01/30/19 06:28 Resp 18 01/30/19 06:28 BP 135/78 01/30/19 06:28 Pulse Ox 98 01/30/19 06:28 Constitutional: Present: Alert, Oriented x3, Cooperative, Well developed, No distress Respiratory: Present: lungs clear, normal breath sounds Cardiovascular/Chest: Present: regular rate, rhythm Peripheral Pulses: radial (L): 2+ Abdomen: Present: soft, nontender Extremity: Absent: lower extremity edema Neurologic: Present: normal mood/affect Appearance: Present: appropriate appearance, appropriate insight Diagnostic Studies: Abnormal Lab Results 01/29/19 01/29/19 01/29/19 Range/Units 19:55 19:55 19:55 RBC 4.67 L (4.7-6.0) M/mm3 MCH 33.0 H (27-31) pg Immature Gran % (Auto) 0.60 H (0.001-0.429) % Immature Gran # (Auto) 0.06 H (0.000-0.0310) K/mm3 Lymphocytes % 17.0 L (20-51) % Neutrophils # 7.3 H (1.3-6.0) K/mm3 PTT ([place]) 23.7 L (24-32) Seconds pO2 (83.0-108.0) mmHg ABG O2 Sat (Measured) (94.0-98.0) % Carboxyhemoglobin 30.1 H (0.5-1.5) % Methemoglobin 0.3 L (0.41-1.15) % Anion Gap (6.8-13.8) mmol/L BUN (6-23) mg/dL Est GFR (Non-Af Amer) (60-130) mL/min Random Glucose (70-110) mg/dL 01/29/19 01/29/19 01/30/19 Range/Units 19:55 20:25 06:33 RBC (4.7-6.0) M/mm3 MCH (27-31) pg Immature Gran % (Auto) (0.001-0.429) % Immature Gran # (Auto) (0.000-0.0310) K/mm3 Lymphocytes % (20-51) % Neutrophils # (1.3-6.0) K/mm3 PTT ([place]) (24-32) Seconds pO2 306.7 H (83.0-108.0) mmHg ABG O2 Sat (Measured) 99.7 H (94.0-98.0) % Carboxyhemoglobin 2.3 H (0.5-1.5) % Methemoglobin 0.4 L (0.41-1.15) % Anion Gap 15.6 H (6.8-13.8) mmol/L BUN 24 H (6-23) mg/dL Est GFR (Non-Af Amer) 57 L (60-130) mL/min Random Glucose 206 H (70-110) mg/dL Laboratory Results WBC 10.0 K/mm3 (4.0-10.5) 01/29/19 19:55 RBC 4.67 M/mm3 (4.7-6.0) L 01/29/19 19:55 Hgb 15.4 gm/dL (13.5-18.0) 01/29/19 19:55 Hct 43.6 % (42.0-52.0) 01/29/19 19:55 MCV 93.4 fl (78-100) 01/29/19 19:55 MCH 33.0 pg (27-31) H 01/29/19 19:55 MCHC 35.3 g/dl (32-36) 01/29/19 19:55 RDW 13.4 % (11.5-14.0) 01/29/19 19:55 Plt Count 170 K/mm3 (150-450) 01/29/19 19:55 MPV 9.5 fl (8-11.3) 01/29/19 19:55 Immature Gran % (Auto) 0.60 % (0.001-0.429) H 01/29/19 19:55 Immature Gran # (Auto) 0.06 K/mm3 (0.000-0.0310) H 01/29/19 19:55 Neutrophils % 72.8 % (42-75.0) 01/29/19 19:55 Lymphocytes % 17.0 % (20-51) L 01/29/19 19:55 Monocytes % 7.6 % (0.0-9) 01/29/19 19:55 Eosinophils % 1.7 % (0.0-3.0) 01/29/19 19:55 Basophils % 0.3 % (0.0-1.0) 01/29/19 19:55 Nucleated RBC % 0.0 k/mm3 (0-1) 01/29/19 19:55 Neutrophils # 7.3 K/mm3 (1.3-6.0) H 01/29/19 19:55 Lymphocytes # 1.70 k/mm3 (1.5-3.5) 01/29/19 19:55 Monocytes # 0.8 k/mm3 (0.0-1.0) 01/29/19 19:55 Eosinophils # 0.2 k/mm3 (0.0-0.7) 01/29/19 19:55 Absolute Basophils 0.0 k/mm3 (0.0-0.1) 01/29/19 19:55 PT 10.0 Seconds (9.1-10.7) 01/29/19 19:55 INR (Anticoag Therapy) 1.01 INR (0.92-1.08) 01/29/19 19:55 PTT ([place]) 23.7 Seconds (24-32) L 01/29/19 19:55 pCO2 37.3 mmHg (35.0-48.0) 01/29/19 20:25 pO2 306.7 mmHg (83.0-108.0) H 01/29/19 20:25 HCO3 22.4 mmol/L (21.0-28.0) 01/29/19 20:25 Total CO2 23.6 mmol/L (19.0-24.0) 01/29/19 20:25 Base Excess -1.9 mmol/L (-2.0-3.0) 01/29/19 20:25 ABG pH 7.40 (7.35-7.45) 01/29/19 20:25 ABG O2 Sat (Measured) 99.7 % (94.0-98.0) H 01/29/19 20:25 Carboxyhemoglobin 2.3 % (0.5-1.5) H 01/30/19 06:33 Methemoglobin 0.4 % (0.41-1.15) L 01/30/19 06:33 Sodium 137 mmol/L (132-142) 01/29/19 19:55 Plasma Sodium 139 mmol/L (130-142) 01/29/19 19:55 Potassium 3.9 mmol/L (3.4-4.6) 01/29/19 19:55 Chloride 101 mmol/L (97-106) 01/29/19 19:55 Carbon Dioxide 24.3 mmol/L (24-32.6) 01/29/19 19:55 Anion Gap 15.6 mmol/L (6.8-13.8) H 01/29/19 19:55 BUN 24 mg/dL (6-23) H 01/29/19 19:55 Creatinine 1.31 mg/dL (0.4-1.4) 01/29/19 19:55 Est GFR (Non-Af Amer) 57 mL/min (60-130) L 01/29/19 19:55 BUN/Creatinine Ratio 18.3 (9.0-21.6) 01/29/19 19:55 Random Glucose 206 mg/dL (70-110) H 01/29/19 19:55 Calcium 9.3 mg/dL (7.9-10.9) 01/29/19 19:55 Calcium Adj for Albumin 9.0 mg/dL (8.4-10.2) 01/29/19 19:55 Total Bilirubin 0.4 mg/dL (0.0-1.1) 01/29/19 19:55 AST 16 U/L (0-48) 01/29/19 19:55 ALT 33 U/L (19-67) 01/29/19 19:55 Alkaline Phosphatase 86 U/L (50-170) 01/29/19 19:55 Troponin I Less than 0.017 ng/mL (0.00-0.10) 01/29/19 19:55 Total Protein 7.3 gm/dL (6.2-8.2) 01/29/19 19:55 Albumin 4.0 gm/dl (3.4-5.0) 01/29/19 19:55 Assessment/Plan - Assessment/Plan (1) Carbon monoxide poisoning Problem: Resolved Qualifiers: Encounter type: initial encounter Injury intent: accidental or unintentional Qualified Code(s): T58.91XA - Toxic effect of carbon monoxide from unspecified source, accidental (unintentional), initial encounter (2) Hypertension Problem: Chronic Qualifiers: Hypertension type: essential hypertension Qualified Code(s): I10 - Essential (primary) hypertension (1) Carbon monoxide poisoning Problem: Resolved Qualifiers: Encounter type: initial encounter Injury intent: accidental or unintentional Qualified Code(s): T58.91XA - Toxic effect of carbon monoxide from unspecified source, accidental (unintentional), initial encounter (2) Hypertension Problem: Chronic Qualifiers: Hypertension type: essential hypertension Qualified Code(s): I10 - Essential (primary) hypertension Date of Discharge:: 01/30/19 Description of Stay: see above Procedures Performed: none Results and Findings: Lab Pending Results 01/29/19 19:55: Carboxyhemoglobin 30.1 H, Methemoglobin 0.3 L 01/29/19 19:55: WBC 10.0, RBC 4.67 L, Hgb 15.4, Hct 43.6, MCV 93.4, MCH 33.0 H, MCHC 35.3, RDW 13.4, Plt Count 170, MPV 9.5, Immature Gran % (Auto) 0.60 H, Immature Gran # (Auto) 0.06 H, Neutrophils % 72.8, Lymphocytes % 17.0 L, Monocytes % 7.6, Eosinophils % 1.7, Basophils % 0.3, Nucleated RBC % 0.0, Neutrophils # 7.3 H, Lymphocytes # 1.70, Monocytes # 0.8, Eosinophils # 0.2, Absolute Basophils 0.0 01/29/19 19:55: PT 10.0, INR (Anticoag Therapy) 1.01, PTT ([place]) 23.7 L 01/29/19 19:55: Sodium 137, Plasma Sodium 139, Potassium 3.9, Chloride 101, Carbon Dioxide 24.3, Anion Gap 15.6 H, BUN 24 H, Creatinine 1.31, Est GFR (Non- Af Amer) 57 L, BUN/Creatinine Ratio 18.3, Random Glucose 206 H, Calcium 9.3, Calcium Adj for Albumin 9.0, Total Bilirubin 0.4, AST 16, ALT 33, Alkaline Phosphatase 86, Troponin I Less than 0.017, Total Protein 7.3, Albumin 4.0 01/29/19 20:25: pCO2 37.3, pO2 306.7 H, HCO3 22.4, Total CO2 23.6, Base Excess - 1.9, ABG pH 7.40, ABG O2 Sat (Measured) 99.7 H 01/30/19 06:33: Carboxyhemoglobin 2.3 H, Methemoglobin 0.4 L Discharge Location: Home Disposition: Home self-care Condition: Good Discharge Activity: Activity as tolerated Discharge Diet: Resume usual diet Referrals: Marni Shepard DO [Primary Care Provider] - One Week Complete Home Medications List: Complete Home Medication List: Aspirin [Aspirin Enteric Coated] 81 mg PO DAILY 01/23/13 Multivit-Minerals/FA/Lycopene [Men's Daily Formula Capsule] 1 ea PO DAILY 01/23/13 Ibuprofen [Motrin] 600 mg PO Q8H PRN 04/28/16 albuterol sulfate 90 mcg/actuation aerosol inhaler 1 puff IH Q6H PRN #6.7 g 11/13/18 metformin 500 mg tablet 500 mg PO BID #180 tab 11/13/18 allopurinol 300 mg tablet 300 mg PO DAILY #90 tab 01/15/19 atorvastatin 40 mg tablet 40 mg PO DAILY #90 tab 01/15/19 finasteride 5 mg tablet 5 mg PO DAILY #90 tab 01/15/19 glipizide 10 mg tablet 10 mg PO BID #180 tab 01/15/19 hydrochlorothiazide 12.5 mg tablet 12.5 mg PO DAILY #90 tab 01/15/19 lisinopril 5 mg tablet 5 mg PO DAILY #90 tab 01/15/19 terazosin 10 mg capsule 10 mg PO HS #90 cap 01/15/19
[2019-01-30 08:55] VITALS: BP 123/70
[2019-01-30] MEDS ORDERED: ROSUVASTATIN CALCIUM 20 MG TABLET PO SCH ×2 (09:00→21:00)
[2019-01-30] MEDS ORDERED: glipiZIDE 10 MG TABLET PO SCH (09:00)
[2019-01-30] MEDS ORDERED: metFORMIN HCL 500 MG TABLET PO SCH (09:00)
== END 2019-01-30 09:26 | disposition home or self-care (01) ==
LOC: ER 19:36 → MS 19:36
PROVIDERS: ADMIT Family Medicine; ATTEND Family Medicine
DX: I10 Essential (primary) hypertension; R06.02 Shortness of breath; T58.91XA Toxic effect of carbon monoxide from unspecified source, accidental (unintentional), initial encounter
CPT/HCPCS: 36415; 36600; 71020; 71046; 80053; 82375; 82803; 84484; 85025; 85610; 85730; 93005; 99285; G0378